=== PATIENT | male | born 1950 | race Caucasian/White ===

== ENCOUNTER 2020-05-28 11:41 | Day surgery (SDC) | payer MEDICARE, OTHER ==
[2020-05-28] VITALS (13 sets, daily range): BP systolic 139–166; BP diastolic 75–91; PULSE 79–98; TEMP 97.2–98.6
[~2020-05-28] VITALS: Ht 180.3 cm; Wt 82.4 kg
[2020-05-28] MEDS ORDERED: PRAVACHOL80 MG PO (11:59)
[2020-05-28] MEDS ORDERED: GLUCOVANCE 5 MG1 TAB PO (12:00)
[2020-05-28] MEDS ORDERED: JANUVIA 100MG100 MG PO (12:02)
[2020-05-28] MEDS ORDERED: TOPROL XL 50MG50 MG PO (12:03)
[2020-05-28] MEDS ORDERED: PROTONIX 40MG T40 MG PO (12:03)
[2020-05-28] MEDS ORDERED: NORVASC 10MG10 MG PO (12:04)
[2020-05-28] MEDS ORDERED: HYZAAR 12.5 MG-1 TAB PO (12:06)
[2020-05-28] MEDS ORDERED: ULTRAM 50MG TAB50 MG PO (12:08)
[2020-05-28] MEDS ORDERED: NEURONTIN300 MG/CAP PO (12:09)
[2020-05-28] MEDS ORDERED: ASPIRIN E.C. 8181 MG PO (12:10)
[2020-05-28] MEDS ORDERED: TURMERIC500 MG PO (12:11)
[2020-05-28] MEDS ORDERED: MAGNESIUM250 M1 PO (12:12)
[2020-05-28] MEDS ORDERED: SAW PALMETTO S450 MG PO (12:13)
[2020-05-28] MEDS ORDERED: VITAMIND3 5000 PO (12:13)
[2020-05-28] MEDS ORDERED: VITAMIN FLUSH-F1 CAP PO (12:14)
[2020-05-28] MEDS ORDERED: FISH OIL 1000MG1 CAP PO (12:15)
[2020-05-28 13:15] LABS: HEMOGLOBIN 12.4 g/dl (13.5-18.0); MEAN CELL VOLUME 84 fl (80.0-100.0); MEAN CORPUSCULAR HEMOGLOBIN 30 pg (27.0-31.0); MEAN CORPUSCULAR HGB CONC 35 g/dl (33.0-37.0); MEAN PLATELET VOLUME 9.4 fl (7.4-10.4); PLATELET COUNT 273 K/mm3 (130-400); RED BLOOD COUNT 4.19 M/mm3 (4.20-5.60); REDCELL DISTRIBUTION WIDTH-CV 12.7 % (11.5-14.5)
[2020-05-28 13:20] LABS: HEMATOCRIT 35.3 % (42.0-52.0); PROTHROMBIN TIME 11.1 SECONDS (9.7-12.8)
[2020-05-28 13:25] LABS: CALCIUM 9.2 mg/dL (8.4-10.2); CREATININE, serum 1.63 (0.66-1.25); POTASSIUM 4.3 mmol/L (3.4-5.0)
[2020-05-28] MEDS ORDERED: TRULICITY0.75 MG/0. SQ (14:21)
[2020-05-28] MEDS ORDERED: MELATONIN5 M1 PO (14:26)
[2020-05-28] MEDS ORDERED: BRILINTA90 MG PO (17:48)
[2020-05-29 00:35] VITALS: BP 145/84; PULSE 81
[2020-05-29 03:28] VITALS: BP 134/82; PULSE 81; TEMP 97.8
--- NOTE | 2020-05-29 06:28 | NUR ---
PT HAD A GOOD NIGHT. WRIST BAND PRESSURE RELEASED WITH NO BLEEDING NOTED. BANDAID PLACED OVER SITE. DENIES ANY PAIN. IVF DC'D AROUND 1240. TAKING PO FLUIDS WITH NO DIFFICULTY. TELE ON WITH SR IN THE LOW TO MID 80'S. CALL LIGHT AT SIDE.
[2020-05-29 08:22] VITALS: BP 142/75; PULSE 85; TEMP 98.2
--- NOTE | 2020-05-29 10:00 | NUR ---
Patient alert and oriented, answers questions appropriately. See assessment. Heart tones strong and even, radial pulses palpable. Previous right radial cath site with no redness/drainage/bruising noted. No c/o at this time.
[2020-05-29 11:00] VITALS: BP 132/79; PULSE 85; TEMP 97.2
--- NOTE | 2020-05-29 14:00 | NUR ---
Dr Salinas here to see patient.
--- NOTE | 2020-05-29 14:34 | NUR ---
Discharge instructions reviewed and spouse, verbalized understanding. Discharged via wheelchair to auto/home with spouse at 1435.
== END 2020-05-29 14:35 | disposition home or self-care (01) ==
LOC: COL.CAR 11:41 → SURG 18:05 → COL.CAR 05-29 14:35
PROVIDERS: Internal Medicine Cardiovascular Disease
DX: I25.118 Atherosclerotic heart disease of native coronary artery with other forms of angina pectoris (principal); E78.5 Hyperlipidemia, unspecified; I13.0 Hypertensive heart and chronic kidney disease with heart failure and stage 1 through stage 4 chronic kidney disease, or unspecified chronic kidney disease; E11.22 Type 2 diabetes mellitus with diabetic chronic kidney disease; I50.20 Unspecified systolic (congestive) heart failure; Z79.82 Long term (current) use of aspirin; Z79.84 Long term (current) use of oral hypoglycemic drugs; N18.30 Chronic kidney disease, stage 3 unspecified; Z87.891 Personal history of nicotine dependence; Z88.6 Allergy status to analgesic agent
CPT/HCPCS: OP; C9600; C9601; J1644; J2250; J3010; J7030; Q9967